=== PATIENT | male | born 1955 | race Caucasian/White ===

== ENCOUNTER → 2025-01-30 08:07 | Outpatient (REF) | payer OTHER, SELFPAY | LOC: PAVMRI 08:07 | PROVIDERS: ATTENDING PHYSICIAN Family Medicine | DX: R41.0 Disorientation, unspecified (principal) | CPT/HCPCS: 70551 ==

== ENCOUNTER → 2025-02-26 06:46 | Outpatient (REF) | payer OTHER, SELFPAY | LOC: RAD 06:46 | PROVIDERS: ATTENDING PHYSICIAN Family Medicine | DX: I72.3 Aneurysm of iliac artery (principal); I65.23 Occlusion and stenosis of bilateral carotid arteries | CPT/HCPCS: 93880; 93978 ==